=== PATIENT | male | born 1950 | race Caucasian/White ===

== ENCOUNTER 2021-01-26 08:25 | Emergency (ER) | payer BC, SELFPAY ==
[2021-01-26 08:40] VITALS: PULSE 66; RESP 20; TEMP 36.7; O2SAT 98
--- NOTE | 2021-01-26 08:44 | ED.UPPEXIN ---
HPI - Extremity Injury (Upper) General Chief Complaint: Extremity Injury, Upper Stated Complaint: Right Hand Pain Source: patient and RN notes reviewed Limitations: no limitations History of Present Illness HPI narrative: The patient, who is right-handed, presents with right wrist pain. Patient states he has a shorter couple day history of right flexor wrist pain that is worse with motion, better at rest, radiates upward from wrist and somewhat worse in the evening. This is associated with paresthesias of his long finger. No injury, neck pain, redness/skin changes-there is some pain limited weakness and numbness. Related Data Home Medications Medication Instructions Recorded Confirmed amlodipine 01/26/21 atorvastatin 40 mg PO DAILY 01/26/21 01/26/21 clonazepam 0.5 mg PO DAILY 01/26/21 01/26/21 famotidine 20 mg PO DAILY 01/26/21 01/26/21 losartan 25 mg PO DAILY 01/26/21 01/26/21 tamsulosin mg PO 01/26/21 Allergies Allergy/AdvReac Type Severity Reaction Status Date / Time No Known Allergies Allergy Verified 01/26/21 08:47 Review of Systems Review of Systems: General/Constitutional: No weight loss,fever Eyes: N0: Redness,discharge Ears/Nose/Throat: No: Epistaxis,ear discharge Respiratory: Denies: Hemoptysis Gastrointestinal: No Vomiting, Bleeding-rectal Skin: No Lumps, eruption Neurologic: No Focal Weakness,Sz Hematologic: Denies: Petechiae/Purpura Psychiatric: No: Suicida ideationl All Other Systems: Reviewed and Negative PMFSH Comments At time of signature, agree with nursing past medical, surgical, social and family history. There is no relevant family history pertinent to the presenting complaint Exam Narrative: General Appearance: Well appearing, conjunctiva clear Mouth/Throat: Normal appearing, Normal lips,: Supple Respiratory: Airway patent, No respiratory distress MS-wrist: Nl strength (mostly intact, limited flexion/extension by pain), Tenderness (with Tinel's at wrist crease, with mild decreased ROM), no swelling, Skin: Warm, Dry, Normal color Neurological: A&O x3, Speech clear, CN II-XII intact Psychiatric: Normal mood, Normal affect Course Vital Signs Vital signs: Vital Signs Temperature 98.1 F 01/26/21 08:40 Pulse Rate 66 01/26/21 08:40 Respiratory Rate 20 01/26/21 08:40 Pulse Oximetry 98 01/26/21 08:40 Temperature 98.1 F 01/26/21 08:40 Pulse Rate 66 01/26/21 08:40 Respiratory Rate 20 01/26/21 08:40 Pulse Oximetry 98 01/26/21 08:40 Discharge Plan Discharge Clinical Impression: Carpal tunnel syndrome of right wrist Patient Disposition: Home, Self-Care Condition: Stable Instructions: Paresthesia (ED) Additional Instructions: Get and wear splint as discussed Prescriptions: New prednisone 20 mg tablet 60 mg PO DAILY Qty: 15 RF: 0 tramadol 50 mg tablet 50 - 75 mg PO BID PRN (Reason: pain) Qty: 20 RF: 0 No Action atorvastatin 40 mg Tablet 40 mg PO DAILY RF: 0 clonazepam 0.5 mg Tablet 0.5 mg PO DAILY RF: 0 amlodipine 5 mg tablet RF: 0 tamsulosin 0.4 mg capsule PO RF: 0 losartan 25 mg tablet 25 mg PO DAILY RF: 0 famotidine 20 mg Tablet 20 mg PO DAILY RF: 0 Follow-up/Referrals: PHYSICIAN NOT ON STAFF,NONSTAFF [Primary Care Provider] -
== END 2021-01-26 08:55 | disposition home or self-care (01) ==
PROVIDERS: Emergency Provider Emergency Medicine
DX: M79.641 Pain in right hand (principal); G56.01 Carpal tunnel syndrome, right upper limb; E78.00 Pure hypercholesterolemia, unspecified; I10 Essential (primary) hypertension; J44.9 Chronic obstructive pulmonary disease, unspecified; K21.9 Gastro-esophageal reflux disease without esophagitis; N40.0 Benign prostatic hyperplasia without lower urinary tract symptoms; G25.81 Restless legs syndrome; Z85.528 Personal history of other malignant neoplasm of kidney; Z90.5 Acquired absence of kidney; Z98.52 Vasectomy status
CPT/HCPCS: 99213; G0463